=== PATIENT | male | born 1965 | race Two or more races ===

== ENCOUNTER 2020-08-17 21:32 | Emergency (ER) | payer SELFPAY ==
[2020-08-17] MEDS ORDERED: Ondansetron 4 MG/2 ML SDV IVPUSH ONE (21:34)
[2020-08-17] MEDS ORDERED: Sodium Chloride 0.9% 2.5 ML Syringe FLUSH PRN (21:34)
[2020-08-17] MEDS ORDERED: Sodium Chloride 0.9% 10 ML Syringe FLUSH PRN (21:34)
[2020-08-17] MEDS ORDERED: Morphine 4 MG/ML Syringe IVPUSH ONE ×2 (21:34→23:06)
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
[2020-08-17 22:14] LABS: BLOOD UREA NITROGEN,BUN 24 mg/dL (7.0-18.0); CARBON DIOXIDE,CO2 20.7 mmol/L (21.0-32.0); CHLORIDE,CL 106 mmol/L (98-107); GLUCOSE RANDOM 88 mg/dL (74-106); POTASSIUM,K 3.8 mmol/L (3.5-5.1); SODIUM,NA 142 mmol/L (136-148)
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
[2020-08-17] MEDS ORDERED: Nitroglycerin 0.4 MG Tab.SL SL PRN (23:06)
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
[2020-08-18] MEDS ORDERED: Ketorolac 30 MG/ML SDV IVPUSH ONE (01:02)
== END 2020-08-18 01:28 | disposition home or self-care (01) ==
LOC: MW.ED 21:32
DX: S09.90XA Unspecified injury of head, initial encounter (principal); R07.89 Other chest pain; S00.412A Abrasion of left ear, initial encounter; Y04.0XXA Assault by unarmed brawl or fight, initial encounter
CPT/HCPCS: 36415; 70450; 71045; 80053; 84484; 85025; 93005; 96374; 96375; 96376; 99285; A9270; J1885; J2270; J2405; 93010; 99284

== ENCOUNTER 2023-04-10 19:56 | Emergency (ER) | payer MEDICAID, OTHER ==
[2023-04-10] MEDS ORDERED: Sodium Chloride 0.9% 1,000 ML IV ONE (20:35)
[2023-04-10] MEDS ORDERED: Ondansetron 4 MG/2 ML SDV IVPUSH ONE (20:36)
[2023-04-10 20:43] LABS: APPEARANCE,URINE SLT CLOUDY; GLUCOSE,URINE NEGATIVE (NEGATIVE); KETONES,URINE 15 mg/dL (NEGATIVE); LEUKOCYTE ESTERASE,URINE NEGATIVE (NEGATIVE); NITRITE,URINE NEGATIVE (NEGATIVE); OCCULT BLOOD,URINE TRACE-INTACT (NEGATIVE); PROTEIN,URINE 100 mg/dL (NEGATIVE)
[2023-04-10 20:51] LABS: BILIRUBIN,URINE SMALL (NEGATIVE)
[2023-04-10 20:52] LABS: BACTERIA,URINE FEW (NEGATIVE); COLOR,URINE DARK YELLOW; EPITHELIAL CELLS,URINE RARE (NONE-FEW); MUCUS,URINE MODERATE (NONE-MOD); RBC,URINE 0-2 (0-2/HPF); WBC,URINE 0-1 (0-5/HPF)
[2023-04-10 21:03] LABS: BASOPHILS ABSOLUTE AUTO 0.01 K/uL (0.00-0.20); BASOPHILS PERCENT AUTO 0.1 % (0.0-1.0); EOSINOPHILS ABSOLUTE AUTO 0.15 K/uL (0.00-0.45); EOSINOPHILS PERCENT AUTO 1.4 % (0.0-6.0); HEMATOCRIT 43.5 % (42.0-52.0); HEMOGLOBIN 15.6 g/dL (14.0-18.0); IMMATURE GRAN ABSOLUTE AUTO 0.02 K/uL (0.00-0.05); IMMATURE GRAN PERCENT AUTO 0.2 % (0.0-0.4); LYMPHOCYTES ABSOLUTE AUTO 0.81 K/uL (1.00-4.80); LYMPHOCYTES PERCENT AUTO 7.6 % (24.0-44.0); MEAN CORPUSCULAR HEMOGLOBIN 34.5 pg (28.0-32.0); MEAN CORPUSCULAR HGB CONC 35.9 g/dL (32.0-36.0); MEAN CORPUSCULAR VOLUME 96.2 fL (83.0-99.0); MEAN PLATELET VOLUME 10.7 fL (9.4-12.4); MONOCYTES ABSOLUTE AUTO 0.48 K/uL (0.00-0.80); MONOCYTES PERCENT AUTO 4.5 % (0.0-8.0); NEUTROPHILS PERCENT AUTO 86.2 % (41.0-71.0); PLATELET COUNT,PLT 243 K/uL (150-400); RED BLOOD CELL COUNT 4.52 M/uL (4.52-5.90); WHITE BLOOD CELL COUNT,WBC 10.67 K/uL (3.9-11.3)
[2023-04-10] MEDS ORDERED: Aluminum Hydroxide/Magnesium Hydroxide/Simethicone XS Susp 30 ML Cup PO ONE (21:14)
[2023-04-10 21:18] LABS: CORONAVIRUS COVID-19 NAA NEGATIVE (NEGATIVE); INFLUENZA A NAA NEGATIVE (NEGATIVE); INFLUENZA B NAA NEGATIVE (NEGATIVE); RESPIRATORY SYNCYTIAL VIR NAA NEGATIVE (NEGATIVE)
[2023-04-10 21:30] LABS: LACTIC ACID 1.2 mmol/L (0.4-2.0)
[2023-04-10] MEDS ORDERED: droPERidol 5 MG/2 ML SDV IVPUSH ONE (22:03)
[2023-04-10 22:30] LABS: A/G RATIO 1.1 (0.9-1.6); ALBUMIN 4.5 g/dL (3.4-5.0); BILIRUBIN TOTAL 0.6 mg/dL (0.2-1.0); CALCIUM 9.7 mg/dL (8.5-10.1); CARBON DIOXIDE,CO2 25.2 mmol/L (21.0-32.0); CREATININE 1.5 mg/dL (0.8-1.3); EST CRCL DRUG DOSING (CG) 53.2 mL/min; POTASSIUM,K 4.3 mmol/L (3.5-5.1); PROTEIN TOTAL,TP 8.6 g/dL (6.4-8.2)
== END 2023-04-10 23:30 | disposition home or self-care (01) ==
LOC: MW.ED 19:56
DX: K52.9 Noninfective gastroenteritis and colitis, unspecified (principal); Z79.899 Other long term (current) drug therapy; Z20.822 Contact with and (suspected) exposure to COVID-19
CPT/HCPCS: 0241U; 36415; 71046; 80053; 81001; 83605; 83690; 84484; 85025; 93005; 96361; 96374; 96375; 99284; A9270; J1790; J2405; J7030